=== PATIENT | female | born 1950 | race Caucasian/White ===

== ENCOUNTER 2018-09-24 15:44 | Emergency (ER) | payer MEDICARE, OTHER ==
[~2018-09-24] VITALS: Ht 162.6 cm; Wt 86.2 kg
--- NOTE | 2018-09-24 15:55 | ED Respiratory ---
General Chief Complaint: Palpitations, shortness of breath Stated Complaint: SOB, HIGH HEART RATE Source: patient Exam Limitations: no limitations History of Present Illness Date Seen by Provider: Sep 24, 2018 Time Seen by Provider: 15:55 68-year-old female with no prior past medical history presents with 2 or 3 day history of palpitations that occur in the evening. Today when she woke up he has had palpitations since waking. She has associated shortness of breath that occurs with exertion. She denies shortness of breath at rest. Nothing improves or worsens her palpitations. No recent long trips, or travel, no trauma, she is not on hormone replacement therapy, she has no prior blood clots, no prior cardiac history. She denies feeling dizzy or like she is going to pass out. Allergies and Home Medications Patient Home Medication List Home Medication List Reviewed: Yes Review of Systems Review of Systems Constitutional: No chills, No dizziness, No fever, No weakness EENTM: No blurred vision, No double vision Respiratory: see HPI, dyspnea on exertion; No hemoptysis; short of breath Cardiovascular: No chest pain, No edema; palpitations; No syncope Gastrointestinal: No abdominal pain, No nausea, No vomiting Genitourinary: No dysuria, No frequency, No hematuria Musculoskeletal: No back pain, No joint pain, No muscle pain Skin: No lesions, No rash Psychiatric/Neurological: Denies Anxiety, Denies Headache Past [place]-Ibhuzc-Kwpinu Hx Past Med/Social Hx: Reviewed Nursing Past Med/Soc Hx Patient Social History Recent Foreign Travel: No Contact w/Someone Who Travel: No Physical Exam Vital Signs - First Documented 09/24/18 16:02 Temp 98.0 Pulse 83 Resp 20 B/P (MAP) 176/90 (118) Pulse Ox 90 O2 Delivery Room Air Capillary Refill : Height: '" Weight: lbs. oz. kg; BMI Method: General Appearance: WD/WN, no apparent distress (Speaks full sentences) HEENT: PERRL/EOMI, normal ENT inspection Neck: non-tender, full range of motion, supple, normal inspection, carotid bruit Respiratory: chest non-tender, lungs clear, normal breath sounds, no respiratory distress, no accessory muscle use, respiratory distress Cardiovascular: normal peripheral pulses, regular rate, rhythm, no edema, no gallop, no JVD, no murmur Gastrointestinal: normal bowel sounds, non tender, soft, no organomegaly, no pulsatile mass Extremities: normal range of motion, non-tender, normal inspection, no pedal edema, no calf tenderness, normal capillary refill Neurologic/Psychiatric: alert, normal mood/affect, oriented x 3 Skin: normal color, warm/dry Progress/Results/Core Measures Suspected Sepsis SIRS Temperature: Pulse: Respiratory Rate: Laboratory Tests 09/24/18 15:57: White Blood Count 10.0 Blood Pressure / Mean: Laboratory Tests 09/24/18 15:57: Creatinine 0.71, INR Comment 1.0, Platelet Count 263, Total Bilirubin 0.2 Results/Orders Lab Results Laboratory Tests Test 09/24/18 15:57 Range/Units White Blood Count 10.0 4.3-11.0 10^3/uL Red Blood Count 4.61 4.35-5.85 10^6/uL Hemoglobin 14.2 11.5-16.0 G/DL Hematocrit 41 35-52 % Mean Corpuscular Volume 89 80-99 FL Mean Corpuscular Hemoglobin 31 25-34 PG Mean Corpuscular Hemoglobin Concent 35 32-36 G/DL Red Cell Distribution Width 13.2 10.0-14.5 % Platelet Count 263 130-400 10^3/uL Mean Platelet Volume 10.6 H 7.4-10.4 FL Neutrophils (%) (Auto) 48 42-75 % Lymphocytes (%) (Auto) 44 12-44 % Monocytes (%) (Auto) 6 0-12 % Eosinophils (%) (Auto) 1 0-10 % Basophils (%) (Auto) 1 0-10 % Neutrophils # (Auto) 4.8 1.8-7.8 X 10^3 Lymphocytes # (Auto) 4.5 H 1.0-4.0 X 10^3 Monocytes # (Auto) 0.6 0.0-1.0 X 10^3 Eosinophils # (Auto) 0.1 0.0-0.3 10^3/uL Basophils # (Auto) 0.1 0.0-0.1 10^3/uL Prothrombin Time 12.9 12.2-14.7 SEC INR Comment 1.0 0.8-1.4 Activated Partial Thromboplast Time 30 24-35 SEC D-Dimer 0.47 0.00-0.49 UG/ML Sodium Level 142 135-145 MMOL/L Potassium Level 3.9 3.6-5.0 MMOL/L Chloride Level 101 98-107 MMOL/L Carbon Dioxide Level 25 21-32 MMOL/L Anion Gap 16 H 5-14 MMOL/L Blood Urea Nitrogen 15 7-18 MG/DL Creatinine 0.71 0.60-1.30 MG/DL Estimat Glomerular Filtration Rate > 60 BUN/Creatinine Ratio 21 Glucose Level 141 H 70-105 MG/DL Calcium Level 9.3 8.5-10.1 MG/DL Corrected Calcium 9.0 8.5-10.1 MG/DL Magnesium Level 2.1 1.8-2.4 MG/DL Total Bilirubin 0.2 0.1-1.0 MG/DL Aspartate Amino Transf (AST/SGOT) 20 5-34 U/L Alanine Aminotransferase (ALT/SGPT) 12 0-55 U/L Alkaline Phosphatase 70 40-136 U/L Total Protein 7.6 6.4-8.2 GM/DL Albumin 4.4 3.2-4.5 GM/DL My Orders Orders - AMANDA ATKINSON MD Cbc With Automated Diff (09/24/18 16:05) Comprehensive Metabolic Panel (09/24/18 16:05) Chest 1 View Ap/Pa Only (09/24/18 16:05) Magnesium (09/24/18 16:05) Ekg Tracing (09/24/18 16:05) O2 (09/24/18 16:05) Saline Lock/Iv-Start (09/24/18 16:05) Monitor-Rhythm Ecg Trace Only (09/24/18 16:05) Fibrin Degradation Products (09/24/18 16:05) Protime With Inr (09/24/18 16:05) Partial Thromboplastin Time (09/24/18 16:05) Vital Signs/I&O 09/24/18 16:02 Temp 98.0 Pulse 83 Resp 20 B/P (MAP) 176/90 (118) Pulse Ox 90 O2 Delivery Room Air Capillary Refill : Progress Note : Time: 17:45 Progress Note patient feeling better, symptoms have resolved. NSR on tele. Has had some runs of PAC's earlier during ED course. PAC's on 12 lead. Discussed differential of palpitations, results of workup and that she was likely noticing the PAC's. All of her questions were answered. Strict return precautions discussed. ECG Initial ECG Impression Date: Sep 24, 2018 Initial ECG Impression Time: 15:56 Comment Sinus rhythm with PACs 80 bpm, normal axis, normal intervals, no hypertrophy, Q waves in V1, no STEMI Diagnostic Imaging Diagonstic Imaging: Xray Plain Films/CT/US/NM/MRI: chest Comments no acute process Reviewed: Reviewed by Me Departure Impression Primary Impression: Palpitations Additional Impression: Premature atrial contractions Disposition: HOME, SELF-CARE Condition: Improved Departure-Patient Inst. Decision time for Depature: 17:45 Referrals: NO,LOCAL PHYSICIAN (PCP) Primary Care Physician Patient Instructions: Palpitations (DC) Add. Discharge Instructions: Palpitations were due to Premature Atrial Contractions. If you continue to notice issues follow up with a Primary Care doctor or a Supervisor [place] for further testing. AMANDA ATKINSON MD Sep 24, 2018 15:55
[2018-09-24 16:19] LABS: EOSINOPHILS % (AUTO) 1 % (0-10); HEMATOCRIT 41 % (35-52); HEMOGLOBIN 14.2 G/DL (11.5-16.0); MEAN CORPUSCULAR HEMOGLOBIN 31 PG (25-34); MEAN CORPUSCULAR HGB CONC 35 G/DL (32-36); MEAN CORPUSCULAR VOLUME 89 FL (80-99); MEAN PLATELET VOLUME 10.6 FL (7.4-10.4); MONOCYTES % (AUTO) 6 % (0-12); NEUTROPHILS % (AUTO) 48 % (42-75); PLATELET COUNT 263 10^3/uL (130-400); RED CELL DISTRIBUTION WIDTH 13.2 % (10.0-14.5)
[2018-09-24 16:20] LABS: BASOPHILS # (AUTO) 0.1 10^3/uL (0.0-0.1); BASOPHILS % (AUTO) 1 % (0-10); EOSINOPHILS # (AUTO) 0.1 10^3/uL (0.0-0.3); LYMPHOCYTES # (AUTO) 4.5 X 10^3 (1.0-4.0); LYMPHOCYTES % (AUTO) 44 % (12-44); MONOCYTES # (AUTO) 0.6 X 10^3 (0.0-1.0); NEUTROPHILS # (AUTO) 4.8 X 10^3 (1.8-7.8)
--- NOTE | 2018-09-24 16:35 | Diagnostic Imaging Report ---
INDICATION: Palpitations and shortness of breath. EXAMINATION: Frontal chest was obtained at 4:06 p.m. FINDINGS: Heart is normal in size. Aorta is tortuous. Mediastinal silhouette is normal in appearance otherwise. Lungs are clear. There is no pneumothorax or pleural fluid. IMPRESSION: No acute process in the chest. Dictated by: Dictated on workstation # [id number]
[2018-09-24 16:45] LABS: CARBON DIOXIDE 25 MMOL/L (21-32); CHLORIDE 101 MMOL/L (98-107); POTASSIUM 3.9 MMOL/L (3.6-5.0); SODIUM 142 MMOL/L (135-145)
[2018-09-24 16:46] LABS: ALANINE AMINOTRANSFERASE 12 U/L (0-55); ALBUMIN 4.4 GM/DL (3.2-4.5); ALKALINE PHOSPHATASE 70 U/L (40-136); BILIRUBIN,TOTAL 0.2 MG/DL (0.1-1.0); BUN/CREATININE RATIO 21; CALCIUM 9.3 MG/DL (8.5-10.1); CREATININE SERUM 0.71 MG/DL (0.60-1.30); GFR ESTIMATED > 60; GLUCOSE 141 MG/DL (70-105); MAGNESIUM 2.1 MG/DL (1.8-2.4); TOTAL PROTEIN 7.6 GM/DL (6.4-8.2)
[2018-09-24 17:45] LABS: FIBRIN DEGRADATION PRODUCTS 0.47 UG/ML (0.00-0.49); PROTHROMBIN TIME PATIENT 12.9 SEC (12.2-14.7)
[2018-09-24 18:04] VITALS: BP 159/88
== END 2018-09-24 18:07 | disposition home or self-care (01) ==
LOC: ER FS 15:47
DX: R00.2 Palpitations (principal); I49.1 Atrial premature depolarization
CPT/HCPCS: 36415; 71045; 80053; 83735; 85025; 85379; 85610; 85730; 93041